=== PATIENT | male | born 1990 | race Caucasian/White ===

== ENCOUNTER → 2024-02-15 | Outpatient (CLI) | payer OTHER, SELFPAY ==
--- OUTSIDE RECORDS SUMMARY | 2024-02-15 07:10 | XMS RPT_ITS | CCD ---
Author Organization [facility] Care Team Providers Care [place] Worker Name Role Phone EVELIO LERMA, DR LEE Primary Care Physician [phone] Allergies Allergy Classification Reported Allergen(s) Allergy Type Date of Onset Reaction(s) Facility (1 source) Amoxicillin / Clavulanate; Translations: [amoxicillin-cla vulanate] Drug Allergy Diarrhea [facility] [place] Medications Current Medications Medication Drug Class(es) Dates Sig (Normalized) Sig (Original) clomiPHENE citrate 50 mg oral tablet (1 source) Estrogen Agonist/Antagonis t Start: 11-13-2020 take 1 tablet by mouth once daily clomiPHENE 50 mg oral tablet See Instructions, take 1 tablet by mouth once daily, # 30 tab(s), 6 Refill(s), Pharmacy: [facility]/pharmacy #[id number], 175.3, cm, 11/13/20 9:44:00 EDT, Height, kg, 11/13/20 9:44:00 EDT, Dosing Weight Start Date: 11/13/20 Status: Ordered Vitamin D2 2000 intl units (50 mcg) oral capsule (1 source) Start: 10-18-2019 Vitamin D2 2000 intl units (50 mcg) oral capsule Dose : 2,000 International_Uni t = 1 cap(s), Oral, qDay, with food, # 60 cap(s), 0 Refill(s) Start Date: 10/18/19 Status: Ordered Problems Problem Classification Problem Date Documented Da te Episodic/Chronic Other endocrine disorders (1 source) 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-09-2019 Chronic Other endocrine disorders (1 source) 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 Residual codes; unclassified (1 source) Creatinine level - finding 05-01-2020 Episodic Results Test Name Value Interpretation Reference Range Facility TESTOon 07-26-2022 Testosterone Lvl 292.93 ng/dL Normal 123.06-813.86 Replaced by [facility] ([place] Comment on above: Result Comment: Norm al Reference Ranges for Females: Female Premenopause Age 21-60 9.01-47.94 ng/dL Female Postmenopause Age 45-89 <7.00-45.62 ng/dL Performed By: #### T ESTO #### [place] [address] #### GFR, CMP #### [address] [address] .Auto Diffon 11-09-2021 Basophil, Absolute 0.1 10 3/mcL Normal 0.0-0.2 [facility] ([place] Comment on above: Performed By: #### T ESTO #### [place] [address] #### GFR, CMP #### [address] [address] Basophils/100 WBC (Bld) 1.0 % Normal 0.0-2.5 [facility] ([place] Comment on above: Performed By: #### T ESTO #### [place] [address] #### GFR, CMP #### [address] [address] Eosinophil, Absolute 0.1 10 3/mcL Normal 0.0-0.4 [facility] ([place] Comment on above: Performed By: #### T ESTO #### [place] [address] #### GFR, CMP #### [address] [address] Eosinophils/100 WBC (Bld) 2.1 % Normal 0.0-7.0 [facility] ([place] Comment on above: Performed By: #### T ESTO #### [place] [address] #### GFR, CMP #### [address] [address] Lymphocyte, Absolute 2.2 10 3/mcL Normal 0.8-3.9 [facility] ([place] Comment on above: Performed By: #### T ESTO #### [address] [address] #### GFR, CMP #### [address] [address] Lymphocytes/100 WBC (Bld) 32.9 % Normal 10.0-50.0 [facility] ([place] Comment on above: Performed By: #### T ESTO #### [place] [address] #### GFR, CMP #### [address] [address] Monocyte, Absolute 0.6 10 3/mcL Normal 0.2-1.0 [facility] ([place] Comment on above: Performed By: #### T ESTO #### [place] [address] #### GFR, CMP #### [address] [address] Monocytes/100 WBC (Bld) 8.7 % Normal 1.7-13.0 [facility] ([place] Comment on above: Performed By: #### T ESTO #### [place] [address] #### GFR, CMP #### [address] [address] Neutrophils/100 WBC (Bld) 55.3 % Normal 37.0-80.0 [facility] ([place] Comment on above: Performed By: #### T ESTO #### [place] [address] #### GFR, CMP #### [address] [address] .GFRon 11-09-2021 GFR 78 ml/min/1.73sqm Normal [facility] ([place] Comment on above: Result Comment: GFR Population mean for , Non- Americans Ages 20-29 = 116 mL/min/1.73 sq.m. Ages 30-39 = 107 mL/min/1.73 sq.m. Ages 40-49 = 99 mL/min/1.73 sq.m. Ages 50-59 = 93 mL/min/1.73 sq.m. Ages 60-69 = 85 mL/min/1.73 sq.m. Ages 70+ = 75 mL/min/1.73 sq.m. Chronic Kidney Disease: Less than 60 mL/min/1.73 square meters End Stage Renal Disease: Less than 15 mL/min/1.73 square meters Performed By: #### T ESTO #### [place] [address] #### GFR, CMP #### [address] [address] GFR Non- 65 ml/min/1.73sqm Normal [facility] ([place] Comment on above: Result Comment: GFR Population mean for , Non- Americans Ages 20-29 = 116 mL/min/1.73 sq.m. Ages 30-39 = 107 mL/min/1.73 sq.m. Ages 40-49 = 99 mL/min/1.73 sq.m. Ages 50-59 = 93 mL/min/1.73 sq.m. Ages 60-69 = 85 mL/min/1.73 sq.m. Ages 70+ = 75 mL/min/1.73 sq.m. Chronic Kidney Disease: Less than 60 mL/min/1.73 square meters End Stage Renal Disease: Less than 15 mL/min/1.73 square meters Performed By: #### T ESTO #### [place] [address] #### GFR, CMP #### [address] [address] .MDWon 11-09-2021 Monocyte Distribution Width Not performed Normal 0.00-20.00 [facility] ([place] Comment on above: Result Comment: MDW testing performed only on adult ER patients between the ages of 18-89 years. Performed By: #### T ESTO #### [place] [address] #### GFR, CMP #### [address] [address] .NEUABSon 11-09-2021 Neutrophil, Absolute 3.8 10 3/mcL Normal 2.9-6.2 [facility] ([place] Comment on above: Performed By: #### T ESTO #### [place] [address] #### GFR, CMP #### [address] [address] CBCon 11-09-2021 Erythrocyte distribution width (RBC) [Ratio] 13.6 % Normal 11.5-14.5 [facility] ([place] Comment on above: Performed By: #### T ESTO #### [place] [address] #### GFR, CMP #### [place] [address] Hematocrit (Bld) [Volume fraction] 45.7 % Normal 42.0-52.0 [facility] ([place] Comment on above: Performed By: #### T ESTO #### [place] [address] #### GFR, CMP #### [place] [address] Hgb 15.6 G/dL Normal 14.0-18.0 [facility] ([place] Comment on above: Performed By: #### T ESTO #### [place] [address] #### GFR, CMP #### [place] [address] MCH (RBC) [Entitic mass] 30.0 pg Normal 27.0-31.2 [facility] ([place] Comment on above: Performed By: #### T ESTO #### [place] [address] #### GFR, CMP #### [place] [address] MCHC 34.2 G/dL Normal 31.8-35.4 [facility] ([place] Comment on above: Performed By: #### T ESTO #### [address] [address] #### GFR, CMP #### [address] [address] MCV (RBC) [Entitic vol] 87.7 fL Normal 80.0-94.0 [facility] ([place] Comment on above: Performed By: #### T ESTO #### [place] [address] #### GFR, CMP #### [address] [address] Platelet 258 10 3/mcL Normal 130-400 [facility] ([place] Comment on above: Performed By: #### T ESTO #### [place] [address] #### GFR, CMP #### [address] [address] Platelet mean volume (Bld) [Entitic vol] 9.0 fL Normal 7.4-10.4 [facility] ([place] Comment on above: Performed By: #### T ESTO #### [place] [address] #### GFR, CMP #### [address] [address] RBC 5.21 10 6/mcL Normal 4.04-6.13 [facility] ([place] Comment on above: Performed By: #### T ESTO #### [place] [address] #### GFR, CMP #### [address] [address] WBC 6.8 10 3/mcL Normal 4.6-10.8 [facility] ([place] Comment on above: Performed By: #### T ESTO #### [place] [address] #### GFR, CMP #### [address] [address] CMPon 11-09-2021 Albumin Level 4.1 G/dL Normal 3.5-5.0 [facility] ([place] Comment on above: Performed By: #### T ESTO #### [place] [address] #### GFR, CMP #### [address] [address] Albumin/Globulin [Mass ratio] 1.6 {ratio} Normal 1.1-2.5 [facility] ([place] Comment on above: Performed By: #### T ESTO #### [place] [address] #### GFR, CMP #### [address] [address] ALP [Catalytic activity/Vol] 99 U/L Normal 40-135 [facility] ([place] Comment on above: Performed By: #### T ESTO #### [place] [address] #### GFR, CMP #### [address] [address] ALT [Catalytic activity/Vol] 24 U/L Normal 16-63 [facility] ([place] Comment on above: Performed By: #### T ESTO #### [place] [address] #### GFR, CMP #### [address] [address] AST [Catalytic activity/Vol] 23 U/L Normal 10-40 [facility] ([place] Comment on above: Performed By: #### T ESTO #### [place] [address] #### GFR, CMP #### [address] [address] Bili Total 0.5 mg/dL Normal 0.2-1.0 [facility] ([place] Comment on above: Result Comment: Use of this assay is not recommended for patients undergoing treatment with eltrombopag due to the potential for falsely elevated results. Performed By: #### T ESTO #### [place] [address] #### GFR, CMP #### [address] [address] BUN/Creatinine Ratio 14 ratio Normal 7-27 [facility] ([place] Comment on above: Performed By: #### T ESTO #### [place] [address] #### GFR, CMP #### [address] [address] Calcium [Mass/Vol] 8.6 mg/dL Normal 8.4-10.2 [facility] ([place] Comment on above: Performed By: #### T ESTO #### [place] [address] #### GFR, CMP #### [address] [address] Chloride [Moles/Vol] 103 mmol/L Normal 98-107 [facility] ([place] Comment on above: Performed By: #### T ESTO #### [place] [address] #### GFR, CMP #### [address] [address] CO2 [Moles/Vol] 29 mmol/L Normal 22-29 [facility] ([place] Comment on above: Performed By: #### T ESTO #### [place] [address] #### GFR, CMP #### [address] [address] Creatinine [Mass/Vol] 1.29 mg/dL Normal 0.70-1.30 Replaced by [facility] [place] Comment on above: Performed By: #### T ESTO #### [place] [address] #### GFR, CMP #### [address] [address] Electrolyte Balance 7.0 mEq/L Normal 4.0-15.0 [facility] ([place] Comment on above: Performed By: #### T ESTO #### [place] [address] #### GFR, CMP #### [address] [address] Globulin 2.6 G/dL Normal [facility] ([place] Comment on above: Performed By: #### T ESTO #### [place] [address] #### GFR, CMP #### [address] [address] Glucose [Mass/Vol] 80 mg/dL Normal 70-105 [facility] ([place] Comment on above: Performed By: #### T ESTO #### [place] [address] #### GFR, CMP #### [address] [address] Potassium [Moles/Vol] 4.3 mmol/L Normal 3.5-5.1 Replaced by [facility] [place] Comment on above: Performed By: #### T ESTO #### [place] [address] #### GFR, CMP #### [address] [address] Sodium [Moles/Vol] 139 mmol/L Normal 136-145 [facility] ([place] Comment on above: Performed By: #### T ESTO #### [place] [address] #### GFR, CMP #### [address] [address] Total Protein 6.7 G/dL Normal 6.4-8.2 [facility] ([place] Comment on above: Performed By: #### T ESTO #### [place] [address] #### GFR, CMP #### [address] [address] Urea nitrogen [Mass/Vol] 18 mg/dL Normal 7-18 [facility] ([place] Comment on above: Performed By: #### T ESTO #### [address] [address] #### GFR, CMP #### [facility] [address] [place], [place] [address] LABORATORYOrdered By: Berenice Owens on 11-09-2021 Albumin BCP dye [Mass/Vol] 4.1 G/dL Invalid Interpretation Code 3.5 - 5.0 G/dL AO ADM SS Albumin/Globulin [Mass ratio] 1.6 {ratio} Invalid Interpretation Code 1.1 - 2.5 ratio AO ADM SS ALP [Catalytic activity/Vol] 99 U/L Invalid Interpretation Code 40 - 135 U/L AO ADM SS ALT With P-5'-P [Catalytic activity/Vol] 24 U/L Invalid Interpretation Code 16 - 63 U/L AO ADM SS AST With P-5'-P [Catalytic activity/Vol] 23 U/L Invalid Interpretation Code 10 - 40 U/L AO ADM SS Basophil, Absolute 0.1 103/mcL Invalid Interpretation Code 0.0 - 0.2 10^3/mcL AO Workflow SS Basophils/100 WBC (Bld) 1.0 % Invalid Interpretation Code 0.0 - 2.5 % AO Workflow SS Bilirubin [Mass/Vol] 0.5 mg/dL Invalid Interpretation Code 0.2 - 1.0 mg/dL AO ADM SS Calcium [Mass/Vol] 8.6 mg/dL Invalid Interpretation Code 8.4 - 10.2 mg/dL AO ADM SS Chloride [Moles/Vol] 103 mmol/L Invalid Interpretation Code 98 - 107 mmol/L AO ADM SS CO2 [Moles/Vol] 29 mmol/L Invalid Interpretation Code 22 - 29 mmol/L AO ADM SS Creatinine [Mass/Vol] 1.29 mg/dL Invalid Interpretation Code 0.70 - 1.30 mg/dL AO ADM SS Electrolyte Balance 7.0 mEq/L Invalid Interpretation Code 4.0 - 15.0 mEq/L AO ADM SS Eosinophil, Absolute 0.1 103/mcL Invalid Interpretation Code 0.0 - 0.4 10^3/mcL AO Workflow SS Eosinophils/100 WBC (Bld) 2.1 % Invalid Interpretation Code 0.0 - 7.0 % AO Workflow SS Erythrocyte distribution width (RBC) [Ratio] 13.6 % Invalid Interpretation Code 11.5 - 14.5 % AO Workflow SS Globulin 2.6 G/dL Invalid Interpretation Code AO ADM SS Glucose [Mass/Vol] 80 mg/dL Invalid Interpretation Code 70 - 105 mg/dL AO ADM SS Hematocrit (Bld) [Volume fraction] 45.7 % Invalid Interpretation Code 42.0 - 52.0 % AO Workflow SS Hemoglobin (Bld) [Mass/Vol] 15.6 G/dL Invalid Interpretation Code 14.0 - 18.0 G/dL AO Workflow SS Lymphocyte, Absolute 2.2 103/mcL Invalid Interpretation Code 0.8 - 3.9 10^3/mcL AO Workflow SS Lymphocytes/100 WBC (Bld) 32.9 % Invalid Interpretation Code 10.0 - 50.0 % AO Workflow SS MCH (RBC) [Entitic mass] 30.0 pg Invalid Interpretation Code 27.0 - 31.2 pg AO Workflow SS MCHC 34.2 G/dL Invalid Interpretation Code 31.8 - 35.4 G/dL AO Workflow SS MCV (RBC) [Entitic vol] 87.7 fL Invalid Interpretation Code 80.0 - 94.0 fL AO Workflow SS Monocyte, Absolute 0.6 103/mcL Invalid Interpretation Code 0.2 - 1.0 10^3/mcL AO Workflow SS Monocytes/100 WBC (Bld) 8.7 % Invalid Interpretation Code 1.7 - 13.0 % AO Workflow SS Neutrophil, Absolute 3.8 103/mcL Invalid Interpretation Code 2.9 - 6.2 10^3/mcL AO Workflow SS Neutrophils/100 WBC (Bld) 55.3 % Invalid Interpretation Code 37.0 - 80.0 % AO Workflow SS Platelet mean volume (Bld) [Entitic vol] 9.0 fL Invalid Interpretation Code 7.4 - 10.4 fL AO Workflow SS Platelets (Bld) [#/Vol] 258 103/mcL Invalid Interpretation Code 130 - 400 10^3/mcL AO Workflow SS Potassium [Moles/Vol] 4.3 mmol/L Invalid Interpretation Code 3.5 - 5.1 mmol/L AO ADM SS Protein [Mass/Vol] 6.7 G/dL Invalid Interpretation Code 6.4 - 8.2 G/dL AO ADM SS RBC (Bld) [#/Vol] 5.21 106/mcL Invalid Interpretation Code 4.04 - 6.13 10^6/mcL AO Workflow SS Sodium [Moles/Vol] 139 mmol/L Invalid Interpretation Code 136 - 145 mmol/L AO ADM SS Urea nitrogen [Mass/Vol] 18 mg/dL Invalid Interpretation Code 7 - 18 mg/dL AO ADM SS Urea nitrogen/Creatinine [Mass ratio] 14 ratio Invalid Interpretation Code 7 - 27 ratio AO ADM SS WBC 6.8 103/mcL Invalid Interpretation Code 4.6 - 10.8 10^3/mcL AO Workflow SS LABORATORYOrdered By: SYSTEM SYSTEM on 11-09-2021 GFR 78 ml/min/1.73sqm Invalid Interpretation Code AO Chemistry S GFR Non- 65 ml/min/1.73sqm Invalid Interpretation Code AO Chemistry S Monocyte distribution width Auto (Bld) [Entitic vol] Not Performed 1 *NA* (11/09/21 7:50 AM) Invalid Interpretation Code 0.00 - 20.00 AO Hematology S Comment on above: Result Comment: MDW testing performed only on adult ER patients between the ages of 18-89 years. Testosterone [Mass/Vol] 292.93 ng/dL Invalid Interpretation Code 123.06 - 813.86 ng/dL AH ADM SS TESTOon 06-02-2021 Testosterone Lvl see comment Normal 123.06-813.86 [facility] ([place] Comment on above: Result Comment: Comp lete reference lab report scanned to EMR. Normal Reference Ranges for Females: Female Premenopause Age 21-60 9.01-47.94 ng/dL Female Postmenopause Age 45-89 <7.00-45.62 ng/dL Performed By: #### T ESTO #### [address] [address] #### GFR, CMP #### [address] [address] .Auto Diffon 06-01-2021 Basophil, Absolute 0.10 10 3/mcL Normal 0.00-0.19 Replaced by [facility] ([place] Comment on above: Performed By: #### G FR, ADIFF, CBC, CMP, ANEU #### [address] [address] #### TESTO #### [address] [address] Basophils/100 WBC (Bld) 0.9 % Normal 0.0-2.5 [facility] ([place] Comment on above: Performed By: #### G FR, ADIFF, CBC, CMP, ANEU #### [address] [address] #### TESTO #### [address] [address] Eosinophil, Absolute 0.10 10 3/mcL Normal 0.00-0.40 [facility] ([place]) Comment on above: Performed By: #### G FR, ADIFF, CBC, CMP, ANEU #### [place] [address] #### TESTO #### [address] [address] Eosinophils/100 WBC (Bld) 2.1 % Normal 0.0-7.0 [facility] ([place]) Comment on above: Performed By: #### G FR, ADIFF, CBC, CMP, ANEU #### [place] [address] #### TESTO #### [address] [address] Lymphocyte, Absolute 2.60 10 3/mcL Normal 0.77-3.85 [facility] ([place] Comment on above: Performed By: #### G FR, ADIFF, CBC, CMP, ANEU #### [place] [address] #### TESTO #### [address] [address] Lymphocytes/100 WBC (Bld) 39.0 % Normal 10.0-50.0 [facility] ([place] Comment on above: Performed By: #### G FR, ADIFF, CBC, CMP, ANEU #### [place] [address] #### TESTO #### [address] [address] Monocyte, Absolute 0.50 10 3/mcL Normal 0.15-1.00 Replaced by [facility] ([place]) Comment on above: Performed By: #### G FR, ADIFF, CBC, CMP, ANEU #### [address] [address] #### TESTO #### [address] [address] Monocytes/100 WBC (Bld) 8.1 % Normal 1.7-13.0 [facility] ([place] Comment on above: Performed By: #### G FR, ADIFF, CBC, CMP, ANEU #### [address] [address] #### TESTO #### [address] [address] Neutrophils/100 WBC (Bld) 49.9 % Normal 37.0-80.0 [facility] ([place] Comment on above: Performed By: #### G FR, ADIFF, CBC, CMP, ANEU #### [address] [address] #### TESTO #### [address] [address] .GFRon 06-01-2021 GFR 85 ml/min/1.73sqm Normal [facility] ([place] Comment on above: Result Comment: GFR Population mean for , Non- Americans Ages 20-29 = 116 mL/min/1.73 sq.m. Ages 30-39 = 107 mL/min/1.73 sq.m. Ages 40-49 = 99 mL/min/1.73 sq.m. Ages 50-59 = 93 mL/min/1.73 sq.m. Ages 60-69 = 85 mL/min/1.73 sq.m. Ages 70+ = 75 mL/min/1.73 sq.m. Chronic Kidney Disease: Less than 60 mL/min/1.73 square meters End Stage Renal Disease: Less than 15 mL/min/1.73 square meters Performed By: #### T ESTO #### [address] [address] #### GFR, CMP #### [address] [address] GFR Non- 70 ml/min/1.73sqm Normal [facility] ([place] Comment on above: Result Comment: GFR Population mean for , Non- Americans Ages 20-29 = 116 mL/min/1.73 sq.m. Ages 30-39 = 107 mL/min/1.73 sq.m. Ages 40-49 = 99 mL/min/1.73 sq.m. Ages 50-59 = 93 mL/min/1.73 sq.m. Ages 60-69 = 85 mL/min/1.73 sq.m. Ages 70+ = 75 mL/min/1.73 sq.m. Chronic Kidney Disease: Less than 60 mL/min/1.73 square meters End Stage Renal Disease: Less than 15 mL/min/1.73 square meters Performed By: #### T ESTO #### [place] [address] #### GFR, CMP #### [address] [address] .NEUABSon 06-01-2021 Neutrophil, Absolute 3.30 10 3/mcL Normal 2.85-6.16 [facility] ([place] Comment on above: Performed By: #### G FR, ADIFF, CBC, CMP, ANEU #### [address] [address] #### TESTO #### [place] [address] CBCon 06-01-2021 Erythrocyte distribution width (RBC) [Ratio] 13.7 % Normal 11.5-14.5 [facility] ([place] Comment on above: Performed By: #### G FR, ADIFF, CBC, CMP, ANEU #### [place] [id number] #### TESTO #### [place] [address] Hematocrit (Bld) [Volume fraction] 45.6 % Normal 42.0-52.0 [facility] ([place] Comment on above: Performed By: #### G FR, ADIFF, CBC, CMP, ANEU #### [place] [address] #### TESTO #### [place] [address] Hgb 15.5 G/dL Normal 14.0-18.0 [facility] ([place] Comment on above: Performed By: #### G FR, ADIFF, CBC, CMP, ANEU #### [place] [address] #### TESTO #### [place] [address] MCH (RBC) [Entitic mass] 29.7 pg Normal 27.0-31.2 [facility] ([place] Comment on above: Performed By: #### G FR, ADIFF, CBC, CMP, ANEU #### [place] [address] #### TESTO #### [place] [address] MCHC 34.0 G/dL Normal 31.8-35.4 [facility] ([place] Comment on above: Performed By: #### G FR, ADIFF, CBC, CMP, ANEU #### [place] [address] #### TESTO #### [place] [address] MCV (RBC) [Entitic vol] 87.2 fL Normal 80.0-94.0 [facility] ([place] Comment on above: Performed By: #### G FR, ADIFF, CBC, CMP, ANEU #### [place] [address] #### TESTO #### [place] [address] Platelet 248 10 3/mcL Normal 130-400 [facility] ([place]) Comment on above: Performed By: #### G FR, ADIFF, CBC, CMP, ANEU #### [place] [address] #### TESTO #### [place] [address] Platelet mean volume (Bld) [Entitic vol] 9.0 fL Normal 7.4-10.4 [facility] ([place] Comment on above: Performed By: #### G FR, ADIFF, CBC, CMP, ANEU #### [address] [address] #### TESTO #### [place] [address] RBC 5.23 10 6/mcL Normal 4.04-6.13 [facility] ([place] Comment on above: Performed By: #### G FR, ADIFF, CBC, CMP, ANEU #### [place] [address] #### TESTO #### [place] [address] WBC 6.60 10 3/mcL Normal 4.60-10.80 [facility] ([place] Comment on above: Performed By: #### G FR, ADIFF, CBC, CMP, ANEU #### [place] [address] #### TESTO #### [place] [address] CMPon 06-01-2021 Albumin Level 4.0 G/dL Normal 3.5-5.0 [facility] ([place] Comment on above: Performed By: #### T ESTO #### [place] [address] #### GFR, CMP #### [address] [address] Albumin/Globulin [Mass ratio] 1.5 {ratio} Normal 1.1-2.5 [facility] ([place] Comment on above: Performed By: #### T ESTO #### [place] [address] #### GFR, CMP #### [address] [address] ALP [Catalytic activity/Vol] 91 U/L Normal 40-135 [facility] ([place] Comment on above: Performed By: #### T ESTO #### [place] [address] #### GFR, CMP #### [address] [address] ALT [Catalytic activity/Vol] 44 U/L Normal 16-63 [facility] ([place] Comment on above: Performed By: #### T ESTO #### [place] [address] #### GFR, CMP #### [address] [address] AST [Catalytic activity/Vol] 23 U/L Normal 10-40 [facility] ([place] Comment on above: Performed By: #### T ESTO #### [place] [address] #### GFR, CMP #### [address] [address] Bili Total 0.2 mg/dL Normal 0.2-1.0 [facility] ([place] Comment on above: Result Comment: Use of this assay is not recommended for patients undergoing treatment with eltrombopag due to the potential for falsely elevated results. Performed By: #### T ESTO #### [place] [address] #### GFR, CMP #### [address] [address] BUN/Creatinine Ratio 17 ratio Normal 7-27 [facility] ([place] Comment on above: Performed By: #### T ESTO #### [place] [address] #### GFR, CMP #### [address] [address] Calcium [Mass/Vol] 8.8 mg/dL Normal 8.4-10.2 [facility] ([place] Comment on above: Performed By: #### T ESTO #### [address] [address] #### GFR, CMP #### [address] [address] Chloride [Moles/Vol] 107 mmol/L Normal 98-107 [facility] ([place] Comment on above: Performed By: #### T ESTO #### [place] [address] #### GFR, CMP #### [address] [address] CO2 [Moles/Vol] 27 mmol/L Normal 22-29 [facility] ([place] Comment on above: Performed By: #### T ESTO #### [place] [address] #### GFR, CMP #### [address] [address] Creatinine [Mass/Vol] 1.21 mg/dL Normal 0.70-1.30 Replaced by [facility] ([place] Comment on above: Performed By: #### T ESTO #### [place] [address] #### GFR, CMP #### [address] [address] Electrolyte Balance 7.0 mEq/L Normal 4.0-15.0 [facility] ([place] Comment on above: Performed By: #### T ESTO #### [place] [address] #### GFR, CMP #### [address] [address] Globulin 2.6 G/dL Normal [facility] ([place] Comment on above: Performed By: #### T ESTO #### [address] [address] #### GFR, CMP #### [address] [address] Glucose [Mass/Vol] 83 mg/dL Normal 70-105 [facility] ([place] Comment on above: Performed By: #### T ESTO #### [address] [address] #### GFR, CMP #### [address] [address] Potassium [Moles/Vol] 4.4 mmol/L Normal 3.5-5.1 Replaced by [facility] ([place] Comment on above: Performed By: #### T ESTO #### [address] [address] [address] #### GFR, CMP #### [address] [address] Sodium [Moles/Vol] 141 mmol/L Normal 136-145 [facility] ([place] Comment on above: Performed By: #### T ESTO #### [address] [address] #### GFR, CMP #### [address] [address] Total Protein 6.6 G/dL Normal 6.4-8.2 [facility] ([place] Comment on above: Performed By: #### T ESTO #### [address] [address] #### GFR, CMP #### [address] [address] Urea nitrogen [Mass/Vol] 21 mg/dL High 7-18 [facility] ([place] Comment on above: Performed By: #### T ESTO #### [place] [address] #### GFR, CMP #### [address] [address] Encounters Encounter Date Encounter Type Care Provider Facility Start: 11-09-2021 End: 11-09-2021 Patient encounter procedure GISSELLE BYRD MD [facility] Social History Date Type Detail Facility Start: 08-09-2019 Tobacco smoking status Never s moked tobacco (finding) [facility] Sex Assigned At Male [facility] Evaluation + Plan note Note Date & Type Note Facility Evaluation + Plan note Future Appointments Appointment Date:11/10/2021 09:30:00 AM Scheduled Provider:GISSELLE BYRD MD Location:[facility]O [facility] Appointment Type:ENDO OV [facility] Hospital course Narrative Note Date & Type Note Facility Hospital course Narrative No data available for this section [facility] Hospital Discharge instructions Note Date & Type Note Facility Hospital Discharge instructions No data available for this section [facility] Progress note Note Date & Type Note Facility Progress note No data available for this section [facility] Summary Purpose Family History No Family History Records Found Advance Directives No Advanced Directives Records Found Additional Source Comments Care Team (unrecognized sect ion and content) Care Team Personnel Name: ROSA FRASER MD Member Role: Primary Care Physician Address: Address: [address] [place] [address] Care Team Related Persons Name: MOIZ YIP Address: Home [address] [place] [phone] (unrecognized sect ion and content) No Status Records Found INFORMATION SOURCE (unrecogn ized section and content) DATE CREATED AUTHOR 11/11/2021 [facility] ([place] FOR RECORDS PERTAINING TO PATIENTS WHO ARE OR HAVE BEEN ENROLLED IN A CHEMICAL DEPENDENCY/SUBSTANCEABUSE PROGRAM, SOME INFORMATION MAY BE OMITTED. This clinical summary was aggregated from multiple sources. Caution should be exercised in using it in the provision of clinical care. This summary normalizes information from multiple sources, and as a consequence, information in this document may materially change the coding, format and clinical context of patient data. In addition, data may be omitted in some cases. CLINICAL DECISIONS SHOULD BE BASED ON THE PRIMARY CLINICAL RECORDS. [email or web address] [facility]. provides no warranty or guarantee of the accuracy or completeness of information in this document.
[2024-02-15 10:41] LABS: Cholesterol 193 mg/dL (200); High Density Lipoprotein 46 mg/dL; Triglycerides 129 mg/dL; Very Low Density Lipoprotein 26 mg/dL (5-40)
== END | disposition home or self-care (01) ==
LOC: MTLAB 07:08
PROVIDERS: PCP Family Medicine; Referring Provider Family Medicine; Visit Provider Family Medicine
DX: E78.5 Hyperlipidemia, unspecified (principal); F52.21 Male erectile disorder
CPT/HCPCS: 36415; 80061; 84403; 84443

== ENCOUNTER → 2025-02-27 | Outpatient (CLI) | payer OTHER, SELFPAY ==
--- OUTSIDE RECORDS SUMMARY | 2025-02-27 07:29 | XMS RPT_ITS | CCD ---
Author Organization [facility] Care Team Providers Care [employer] Specialist Name Role Phone DR LAUREN GUZMAN MD Primary Care Physician Lauren Guzman Referring Unavailable Lauren Guzman Attending Unavailable Lauren Guzman Primary Care Unavailable Allergies Allergy Classification Reported Allergen(s) Allergy Type Date of Onset Reaction(s) Facility (1 source) Amoxicillin / Clavulanate; Translations: [amoxicillin-cla vulanate] Drug Allergy Diarrhea [facility] [place] Medications Current Medications Medication Drug Class(es) Dates Sig (Normalized) Sig (Original) clomiPHENE citrate 50 mg oral tablet (1 source) Estrogen Agonist/Antagonis t Start: 11-13-2020 take 1 tablet by mouth once daily clomiPHENE 50 mg oral tablet See Instructions, take 1 tablet by mouth once daily, # 30 tab(s), 6 Refill(s), Pharmacy: [facility]/pharmacy #[id number], 175.3, cm, 11/13/20 9:44:00 EDT, [...] Ordered Problems Problem Classification Problem Date Documented Date Episodic/Chronic Disorders of lipid metabolism (1 source) Hyperlipidemia, unspecified; Translations: [Hyperlipidemia, unspecified] Onset: 4 Chronic Other endocrine disorders (1 source) 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-09-2019 Chronic Other endocrine disorders (1 source) 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, [address] Cholesterol in HDL [Mass/Vol] 46 mg/dL Normal [facility] Comment on above: Order Comment: Order Date: 01/17/24 Order Info: [id number] - LIPID Order Info: [id number] - TSH Result Comment: The drugs N-Acetylcysteine and Metamizole may falsely depress this assay. Reference Range HDL <40 mg/dL Low HDL Cholesterol HDL >or= 60 mg/dL High HDL Cholesterol Performed By: #### L 500.4100 #### [facility] [address] [place], [address] Cholesterol in LDL [Mass/Vol] 121 mg/dL Normal 0-130 [facility] Comment on above: Order Comment: Order Date: 01/17/24 Order Info: [id number] - LIPID Order Info: 63 - TSH Performed By: #### L 500.4100 #### [facility] [address] [place], [address] Cholesterol in VLDL [Mass/Vol] 26 mg/dL Normal 5-40 [facility] Comment on above: Order Comment: Order Date: 01/17/24 Order Info: [id number] - LIPID Order Info: [id number] - TSH Performed By: #### L 500.4100 #### [facility] [address] [place], [address] Triglyceride [Mass/Vol] 129 mg/dL Normal [facility] Comment on above: Order Comment: Order Date: 01/17/24 Order Info: [id number] - LIPID Order Info: [id number] - TSH Result Comment: The drugs N-Acetylcysteine and Metamizole may falsely depress this assay. Serum Triglycerides Reference Interval Normal <150 mg/dL Borderline high 150 - 199 mg/dL High 200 - 499 mg/dL Very High > or = 500 mg/dL Performed By: #### L 500.4100 #### [facility] [address] [place], [address] Testosterone, Serum Totalon 02-15-2024 Testosterone [Mass/Vol] 186.86 ng/dL Normal [facility] Comment on above: Order Comment: Order Date: 01/17/24 Order Info: [id number] - LAUREN Result Comment: CENT RAL 90% REFERENCE RANGES MALE AGE <50 197.44 - 669.58 ng/dL MALE AGE > or = 50 187.72 - 684.19 ng/dL FEMALE AGE <50 8.38 - 35.01 ng/dL FEMALE AGE > or = 50 <7.00 - 35.92 ng/dL Effective as of 11/11/20 Performed By: #### L 501.9520, L509.3000 #### [facility] [address] [place], [place], [address] Thyroid Stim Hormone (TSH)on 02-15-2024 TSH 2.310 uIU/mL Normal 0.358-3.740 [facility] Comment on above: Order Comment: Order Date: 01/17/24 Order Info: [id number] - LIPID Order Info: [id number] - TSH Performed By: #### L 501.9520, L509.3000 #### [facility] [address] [place], [address] TESTOon 11-10-2021 Testosterone Lvl 292.93 ng/dL Normal 123.06-813.86 [facility] ([place]) Comment on above: Result Comment: Norm al Reference Ranges for Females: Female Premenopause Age 21-60 9.01-47.94 ng/dL Female Postmenopause Age 45-89 <7.00-45.62 ng/dL Performed By: #### T ESTO #### [place] [address] #### GFR, CMP #### [address] [address] .Auto Diffon 11-09-2021 Basophil, Absolute 0.1 10 3/mcL Normal 0.0-0.2 [facility] ([place]) Comment on above: Performed By: #### T ESTO #### [place] [address] #### GFR, CMP #### [address] [address] Basophils/100 WBC (Bld) 1.0 % Normal 0.0-2.5 [facility] ([place]) Comment on above: Performed By: #### T ESTO #### [place] [address] #### GFR, CMP #### [address] [address] Eosinophil, Absolute 0.1 10 3/mcL Normal 0.0-0.4 [facility] ([place]) Comment on above: Performed By: #### T ESTO #### [place] [address] #### GFR, CMP #### [address] [address] Eosinophils/100 WBC (Bld) 2.1 % Normal 0.0-7.0 [facility] ([place]) Comment on above: Performed By: #### T ESTO #### [place] [address] #### GFR, CMP #### [address] [address] Lymphocyte, Absolute 2.2 10 3/mcL Normal 0.8-3.9 [facility] ([place] Comment on above: Performed By: #### T ESTO #### [place] [id number] #### GFR, CMP #### [address] [address] Lymphocytes/100 WBC (Bld) 32.9 % Normal 10.0-50.0 [facility] ([place] Comment on above: Performed By: #### T ESTO #### [place] [address] #### GFR, CMP #### [address] [address] Monocyte, Absolute 0.6 10 3/mcL Normal 0.2-1.0 [facility] ([place]) Comment on above: Performed By: #### T ESTO #### [place] [address] #### GFR, CMP #### [address] [address] Monocytes/100 WBC (Bld) 8.7 % Normal 1.7-13.0 [facility] ([place] Comment on above: Performed By: #### T ESTO #### [place] [address] #### GFR, CMP #### [address] [address] Neutrophils/100 WBC (Bld) 55.3 % Normal 37.0-80.0 [facility] ([place] Comment on above: Performed By: #### T ESTO #### [place] [address] #### GFR, CMP #### [address] [address] .GFRon 11-09-2021 GFR 78 ml/min/1.73sqm Normal [facility] ([place]) Comment on above: Result Comment: GFR Population [...] meters Performed By: #### T ESTO #### [place] [address] #### GFR, CMP #### [address] [address] GFR Non- 65 ml/min/1.73sqm Normal [facility] ([place] Comment on above: Result Comment: GFR Population [...] meters Performed By: #### T ESTO #### [place] [address] #### GFR, CMP #### [address] [address] .MDWon 11-09-2021 Monocyte Distribution Width Not performed Normal 0.00-20.00 [facility] ([place]) Comment on above: Result Comment: MDW testing performed only on adult ER patients between the ages of 18-89 years. Performed By: #### T ESTO #### [place] [address] #### GFR, CMP #### [address] [address] .NEUABSon 11-09-2021 Neutrophil, Absolute 3.8 10 3/mcL Normal 2.9-6.2 [facility] ([place]) Comment on above: Performed By: #### T ESTO #### [place] [address] #### GFR, CMP #### [address] [address] CBCon 11-09-2021 Erythrocyte distribution width (RBC) [Ratio] 13.6 % Normal 11.5-14.5 [facility] ([place] Comment on above: Performed By: #### T ESTO #### [place] [address] #### GFR, CMP #### [address] [address] Hematocrit (Bld) [Volume fraction] 45.7 % Normal 42.0-52.0 [facility] ([place] Comment on above: Performed By: #### T ESTO #### [place] [address] #### GFR, CMP #### [address] [address] Hgb 15.6 G/dL Normal 14.0-18.0 [facility] ([place] Comment on above: Performed By: #### T ESTO #### [place] [address] #### GFR, CMP #### [address] [address] MCH (RBC) [Entitic mass] 30.0 pg Normal 27.0-31.2 [facility] ([place] Comment on above: Performed By: #### T ESTO #### [place] [address] #### GFR, CMP #### [place] [id number] MCHC 34.2 G/dL Normal 31.8-35.4 [facility] ([place] Comment on above: Performed By: #### T ESTO #### [place] [address] #### GFR, CMP #### [address] [address] MCV (RBC) [Entitic vol] 87.7 fL Normal 80.0-94.0 [facility] ([place] Comment on above: Performed By: #### T ESTO #### [place] [address] #### GFR, CMP #### [address] [address] Platelet 258 10 3/mcL Normal 130-400 [facility] ([place]) Comment on above: Performed By: #### T ESTO #### [place] [address] #### GFR, CMP #### [address] [address] Platelet mean volume (Bld) [Entitic vol] 9.0 fL Normal 7.4-10.4 [facility] ([place]) Comment on above: Performed By: #### T ESTO #### [place] [address] #### GFR, CMP #### [address] [address] RBC 5.21 10 6/mcL Normal 4.04-6.13 [facility] ([place]) Comment on above: Performed By: #### T ESTO #### [place] [address] #### GFR, CMP #### [address] [address] WBC 6.8 10 3/mcL Normal 4.6-10.8 [facility] ([place] Comment on above: Performed By: #### T ESTO #### [place] [address] #### GFR, CMP #### [address] [address] CMPon 11-09-2021 Albumin Level 4.1 G/dL Normal 3.5-5.0 [facility] ([place] Comment on above: Performed By: #### T ESTO #### [place] [address] #### GFR, CMP #### [address] [address] Albumin/Globulin [Mass ratio] 1.6 {ratio} Normal 1.1-2.5 [facility] ([place] Comment on above: Performed By: #### T ESTO #### [place] [address] #### GFR, CMP #### [address] [address] ALP [Catalytic activity/Vol] 99 U/L Normal 40-135 [facility] ([place] Comment on above: Performed By: #### T ESTO #### [place] [address] #### GFR, CMP #### [address] [address] ALT [Catalytic activity/Vol] 24 U/L Normal 16-63 [facility] ([place] Comment on above: Performed By: #### T ESTO #### [place] [address] #### GFR, CMP #### [address] [address] AST [Catalytic activity/Vol] 23 U/L Normal 10-40 [facility] ([place] Comment on above: Performed By: #### T ESTO #### [place] [address] #### GFR, CMP #### [address] [address] Bili Total 0.5 mg/dL Normal 0.2-1.0 [facility] ([place] Comment on above: Result Comment: Use of this assay is not recommended for patients undergoing treatment with eltrombopag due to the potential for falsely elevated results. Performed By: #### T ESTO #### [place] [address] #### GFR, CMP #### [address] [address] BUN/Creatinine Ratio 14 ratio Normal 7-27 [facility] ([place]) Comment on above: Performed By: #### T ESTO #### [place] [address] #### GFR, CMP #### [address] [address] Calcium [Mass/Vol] 8.6 mg/dL Normal 8.4-10.2 [facility] ([place]) Comment on above: Performed By: #### T ESTO #### [place] [address] #### GFR, CMP #### [address] [address] Chloride [Moles/Vol] 103 mmol/L Normal 98-107 [facility] ([place] Comment on above: Performed By: #### T ESTO #### [place] [address] #### GFR, CMP #### [address] [address] CO2 [Moles/Vol] 29 mmol/L Normal 22-29 [facility] ([place] Comment on above: Performed By: #### T ESTO #### [place] [address] #### GFR, CMP #### [address] [address] Creatinine [Mass/Vol] 1.29 mg/dL Normal 0.70-1.30 [facility] ([place] Comment on above: Performed By: #### T ESTO #### [place] [address] #### GFR, CMP #### [address] [address] Electrolyte Balance 7.0 mEq/L Normal 4.0-15.0 [facility] ([place]) Comment on above: Performed By: #### T ESTO #### [place] [address] #### GFR, CMP #### [address] [address] Globulin 2.6 G/dL Normal [facility] ([place] Comment on above: Performed By: #### T ESTO #### [place] [address] #### GFR, CMP #### [address] [address] Glucose [Mass/Vol] 80 mg/dL Normal 70-105 [facility] ([place] Comment on above: Performed By: #### T ESTO #### [place] [address] #### GFR, CMP #### [address] [address] Potassium [Moles/Vol] 4.3 mmol/L Normal 3.5-5.1 [facility] ([place] Comment on above: Performed By: #### T ESTO #### [place] [address] #### GFR, CMP #### [address] [address] Sodium [Moles/Vol] 139 mmol/L Normal 136-145 [facility] ([place] Comment on above: Performed By: #### T ESTO #### [place] [address] #### GFR, CMP #### [address] [address] Total Protein 6.7 G/dL Normal 6.4-8.2 [facility] ([place] Comment on above: Performed By: #### T ESTO #### [place] [address] #### GFR, CMP #### [address] [address] Urea nitrogen [Mass/Vol] 18 mg/dL Normal 7-18 [facility] ([place] Comment on above: Performed By: #### T ESTO #### [address] [address] #### GFR, CMP #### [place] [address] [place], [place] [address] LABORATORYOrdered By: Berenice Owens on 11-09-2021 Albumin [...] 06-02-2021 Testosterone Lvl see comment Normal 123.06-813.86 [facility] ([place]) Comment on above: Result Comment: Comp lete reference lab report scanned to EMR. Normal Reference Ranges for Females: Female Premenopause Age 21-60 9.01-47.94 ng/dL Female Postmenopause Age 45-89 <7.00-45.62 ng/dL Performed By: #### T ESTO #### [address] [address] #### GFR, CMP #### [address] [address] .Auto Diffon 06-01-2021 Basophil, Absolute 0.10 10 3/mcL Normal 0.00-0.19 [facility] ([place] Comment on above: Performed By: #### G FR, ADIFF, CBC, CMP, ANEU #### [address] [address] #### TESTO #### [address] [address] Basophils/100 WBC (Bld) 0.9 % Normal 0.0-2.5 [facility] ([place] Comment on above: Performed By: #### G FR, ADIFF, CBC, CMP, ANEU #### [place] [address] #### TESTO #### [address] [address] Eosinophil, Absolute 0.10 10 3/mcL Normal 0.00-0.40 [facility] ([place]) Comment on above: Performed By: #### G FR, ADIFF, CBC, CMP, ANEU #### [place] [address] #### TESTO #### [address] [address] Eosinophils/100 WBC (Bld) 2.1 % Normal 0.0-7.0 [facility] ([place]) Comment on above: Performed By: #### G FR, ADIFF, CBC, CMP, ANEU #### [place] [address] #### TESTO #### [address] [address] Lymphocyte, Absolute 2.60 10 3/mcL Normal 0.77-3.85 [facility] ([place]) Comment on above: Performed By: #### G FR, ADIFF, CBC, CMP, ANEU #### [place] [address] #### TESTO #### [address] [address] Lymphocytes/100 WBC (Bld) 39.0 % Normal 10.0-50.0 [facility] ([place]) Comment on above: Performed By: #### G FR, ADIFF, CBC, CMP, ANEU #### [place] [address] #### TESTO #### [address] [address] Monocyte, Absolute 0.50 10 3/mcL Normal 0.15-1.00 [facility] ([place] Comment on above: Performed By: #### G FR, ADIFF, CBC, CMP, ANEU #### [address] [address] #### TESTO #### [address] [address] Monocytes/100 WBC (Bld) 8.1 % Normal 1.7-13.0 [facility] ([place] Comment on above: Performed By: #### G FR, ADIFF, CBC, CMP, ANEU #### [address] [address] #### TESTO #### [address] [address] Neutrophils/100 WBC (Bld) 49.9 % Normal 37.0-80.0 [facility] ([place]) Comment on above: Performed By: #### G FR, ADIFF, CBC, CMP, ANEU #### [address] [address] #### TESTO #### [address] [address] .GFRon 06-01-2021 GFR 85 ml/min/1.73sqm Normal [facility] ([place]) Comment on above: Result Comment: GFR Population [...] meters Performed By: #### T ESTO #### [address] [address] #### GFR, CMP #### [address] [address] GFR Non- 70 ml/min/1.73sqm Normal [facility] ([place]) Comment on above: Result Comment: GFR Population [...] meters Performed By: #### T ESTO #### [place] [address] #### GFR, CMP #### [address] [address] .NEUABSon 06-01-2021 Neutrophil, Absolute 3.30 10 3/mcL Normal 2.85-6.16 [facility] ([place]) Comment on above: Performed By: #### G FR, ADIFF, CBC, CMP, ANEU #### [address] [address] #### TESTO #### [place] [address] CBCon 06-01-2021 Erythrocyte distribution width (RBC) [Ratio] 13.7 % Normal 11.5-14.5 [facility] ([place] Comment on above: Performed By: #### G FR, ADIFF, CBC, CMP, ANEU #### [address] [address] #### TESTO #### [address] [address] Hematocrit (Bld) [Volume fraction] 45.6 % Normal 42.0-52.0 [facility] ([place] Comment on above: Performed By: #### G FR, ADIFF, CBC, CMP, ANEU #### [place] [id number] #### TESTO #### [place] [address] Hgb 15.5 G/dL Normal 14.0-18.0 [facility] ([place] Comment on above: Performed By: #### G FR, ADIFF, CBC, CMP, ANEU #### [place] [address] #### TESTO #### [place] [id number] MCH (RBC) [Entitic mass] 29.7 pg Normal 27.0-31.2 [facility] ([place] Comment on above: Performed By: #### G FR, ADIFF, CBC, CMP, ANEU #### [place] [address] #### TESTO #### [place] [address] MCHC 34.0 G/dL Normal 31.8-35.4 [facility] ([place] Comment on above: Performed By: #### G FR, ADIFF, CBC, CMP, ANEU #### [place] [address] #### TESTO #### [place] [address] MCV (RBC) [Entitic vol] 87.2 fL Normal 80.0-94.0 [facility] ([place] Comment on above: Performed By: #### G FR, ADIFF, CBC, CMP, ANEU #### [place] [address] #### TESTO #### [place] [address] Platelet 248 10 3/mcL Normal 130-400 [facility] ([place]) Comment on above: Performed By: #### G FR, ADIFF, CBC, CMP, ANEU #### [place] [address] #### TESTO #### [place] [address] Platelet mean volume (Bld) [Entitic vol] 9.0 fL Normal 7.4-10.4 [facility] ([place] Comment on above: Performed By: #### G FR, ADIFF, CBC, CMP, ANEU #### [address] [address] #### TESTO #### [address] [address] RBC 5.23 10 6/mcL Normal 4.04-6.13 [facility] ([place] Comment on above: Performed By: #### G FR, ADIFF, CBC, CMP, ANEU #### [address] [address] #### TESTO #### [place] [address] WBC 6.60 10 3/mcL Normal 4.60-10.80 [facility] ([place] Comment on above: Performed By: #### G FR, ADIFF, CBC, CMP, ANEU #### [place] [address] #### TESTO #### [place] [address] CMPon 06-01-2021 Albumin Level 4.0 G/dL Normal 3.5-5.0 [facility] ([place] Comment on above: Performed By: #### T ESTO #### [place] [address] #### GFR, CMP #### [address] [address] Albumin/Globulin [Mass ratio] 1.5 {ratio} Normal 1.1-2.5 [facility] ([place] Comment on above: Performed By: #### T ESTO #### [place] [address] #### GFR, CMP #### [address] [address] ALP [Catalytic activity/Vol] 91 U/L Normal 40-135 [facility] ([place] Comment on above: Performed By: #### T ESTO #### [address] [address] #### GFR, CMP #### [address] [address] ALT [Catalytic activity/Vol] 44 U/L Normal 16-63 [facility] ([place] Comment on above: Performed By: #### T ESTO #### [place] [address] #### GFR, CMP #### [address] [address] AST [Catalytic activity/Vol] 23 U/L Normal 10-40 [facility] ([place] Comment on above: Performed By: #### T ESTO #### [place] [address] #### GFR, CMP #### [address] [address] Bili Total 0.2 mg/dL Normal 0.2-1.0 [facility] ([place] Comment on above: Result Comment: Use of this assay is not recommended for patients undergoing treatment with eltrombopag due to the potential for falsely elevated results. Performed By: #### T ESTO #### [place] [address] #### GFR, CMP #### [address] [address] BUN/Creatinine Ratio 17 ratio Normal 7-27 [facility] ([place]) Comment on above: Performed By: #### T ESTO #### [place] [address] #### GFR, CMP #### [address] [address] Calcium [Mass/Vol] 8.8 mg/dL Normal 8.4-10.2 [facility] ([place] Comment on above: Performed By: #### T ESTO #### [place] [address] #### GFR, CMP #### [address] [address] Chloride [Moles/Vol] 107 mmol/L Normal 98-107 [facility] ([place] Comment on above: Performed By: #### T ESTO #### [place] [address] #### GFR, CMP #### [address] [address] CO2 [Moles/Vol] 27 mmol/L Normal 22-29 [facility] ([place] Comment on above: Performed By: #### T ESTO #### [place] [address] #### GFR, CMP #### [address] [address] Creatinine [Mass/Vol] 1.21 mg/dL Normal 0.70-1.30 [facility] ([place] Comment on above: Performed By: #### T ESTO #### [place] [address] #### GFR, CMP #### [address] [address] Electrolyte Balance 7.0 mEq/L Normal 4.0-15.0 [facility] ([place] Comment on above: Performed By: #### T ESTO #### [place] [address] #### GFR, CMP #### [address] [address] Globulin 2.6 G/dL Normal [facility] ([place] Comment on above: Performed By: #### T ESTO #### [place] [address] #### GFR, CMP #### [address] [address] Glucose [Mass/Vol] 83 mg/dL Normal 70-105 [facility] ([place] Comment on above: Performed By: #### T ESTO #### [place] [address] #### GFR, CMP #### [address] [address] Potassium [Moles/Vol] 4.4 mmol/L Normal 3.5-5.1 [facility] ([place] Comment on above: Performed By: #### T ESTO #### [address] [address] #### GFR, CMP #### [address] [address] Sodium [Moles/Vol] 141 mmol/L Normal 136-145 [facility] ([place] Comment on above: Performed By: #### T ESTO #### [address] [address] #### GFR, CMP #### [address] [address] Total Protein 6.6 G/dL Normal 6.4-8.2 [facility] ([place] Comment on above: Performed By: #### T ESTO #### [place] [address] #### GFR, CMP #### [address] [address] Urea nitrogen [Mass/Vol] 21 mg/dL High 7-18 [facility] ([place] Comment on above: Performed By: #### T ESTO #### [address] [address] #### GFR, CMP #### [address] [address] Encounters Encounter Date Encounter Type Care Provider Facility Start: 02-15-2024 End: 02-15-2024 ambulatory [facility] Facility:[facility] Start: 11-09-2021 End: 11-09-2021 Patient encounter procedure GISSELLE BYRD MD [facility] Payers Date Payer Category Payer Self-pay 2024 Unknown [id number] Unknown [id number] Social History Date Type Detail Facility Start: 08-09-2019 Tobacco smoking status Never s moked tobacco (finding) [facility] Sex Assigned At Male [facility] Evaluation + Plan note Note Date & Type Note Facility Evaluation + Plan note Future Appointments Appointment Date:11/10/2021 09:30:00 AM Scheduled Provider:GISSELLE BYRD MD Location:[facility] Appointment Type:ENDO [facility] Hospital course Narrative Note Date & Type Note Facility Hospital course Narrative No data available for this section [facility] Hospital Discharge instructions Note Date & Type Note Facility Hospital Discharge instructions No data available for this section [facility] Progress note Note Date & Type Note Facility Progress note No data available for this section [facility] Summary Purpose Family History No Family History Records FoundNo Family History Records Found Advance Directives No Advanced Directives Records FoundNo Advanced Directives Records Found Additional Source Comments Care Team (unrecognized sect ion and content) Care Team Personnel Name: LAUREN GUZMAN MD Member Role: Primary Care Physician Address: Address: [address] [place] [address] Care Team Related Persons Name: MOIZ YIP Address: Home [address] [place] [phone] (unrecognized sect ion and content) No Status Records FoundNo Status Records Found INFORMATION SOURCE (unrecogn ized section and content) DATE CREATED AUTHOR 11/11/2021 [facility] ([place]) DATE CREATED AUTHOR AUTHOR'S ORGANIZ ATION 03/09/2024 [facility] FOR RECORDS PERTAINING TO PATIENTS WHO ARE [...] BE BASED ON THE PRIMARY CLINICAL RECORDS. [facility] [employer] [facility] provides no warranty or guarantee of the accuracy or completeness of information in this document.
[2025-02-27 10:20] LABS: Hematocrit 45.4 % (40-54); Hemoglobin 15.7 g/dL (13.0-16.5); Immature Granulocytes Count 0.020 X10^3/uL (0.0-0.0); Mean Corp Hgb Conc 34.6 g/dL (32-36); Mean Corpuscular Volume 85.5 fL (80-94); Mean Platelet Vol. 10.3 fl (6.2-12.0); NRBC Flagged by Analyzer 0 % (0-5); Platelet Count 291 K/mm3 (150-450); RBC Distribution Width CV 13.0 % (11.6-14.6); RBC Distribution Width SD 40.5 fl (35.1-43.9); Red Blood Count 5.31 M/mm3 (4.6-6.2); White Blood Count 6.9 K/mm3 (4.4-11.0)
[2025-02-27 10:57] LABS: AST(SGOT) 20 U/L (<=37); Alanine Aminotransfer ALT/SGPT 20 U/L (<=46); Albumin, Serum 4.5 g/dL (3.5-5.0); Alkaline Phosphatase 67 U/L (40-129); Anion Gap 11 (5-15); BUN 18 mg/dL (4-19); BUN/Creat Ratio 16.0 RATIO (10-20); Calcium,Total 9.2 mg/dL (7.6-11.0); Carbon Dioxide 22.5 mmol/L (21.0-32.0); Chloride 106 mmol/L (98-108); Globulin 2.7 g/dL (2.2-4.2); Glucose 102 mg/dL (70-99); Potassium 4.3 mmol/L (3.3-5.1)
== END | disposition home or self-care (01) ==
PROVIDERS: PCP Family Medicine
DX: Z00.00 Encounter for general adult medical examination without abnormal findings (principal)
CPT/HCPCS: 36415; 80053; 84403; 84443; 85025